=== PATIENT | male | born 1970 | race Hispanic/Latino ===

== ENCOUNTER 2023-01-28 13:28 | Observation (INO) | payer MEDICARE, OTHER ==
[2023-01-28] VITALS (10 sets, daily range): BP systolic 105–164; BP diastolic 37–100; PULSE 73–79; RESP 10–18; O2SAT 99
[~2023-01-28] VITALS: Ht 180.3 cm; Wt 92.1 kg
[2023-01-28] MEDS ORDERED: IODIXANOL 320 MG/ML 100 ML VIAL ONE (17:49)
[2023-01-28] MEDS ORDERED: NITROGLYCERIN 50MG VIAL ONE (17:49)
[2023-01-28] MEDS ORDERED: FENTANYL CITRATE PF 50 MCG/1 ML 2ML VIAL ONE ×2 (17:49→19:34)
[2023-01-28] MEDS ORDERED: HEPARIN 10,000 UNIT/10ML (1,000 UNIT/ML) VIAL ONE (17:49)
[2023-01-28] MEDS ORDERED: NICARDIPINE 25MG INJ IV ONE (17:49)
[2023-01-28] MEDS ORDERED: LIDOCAINE HCL 400MG/20ML VIAL ONE (17:49)
[2023-01-28] MEDS ORDERED: MIDAZOLAM HCL 1 MG/ML 2ML VIAL ONE ×2 (17:49→19:01)
[2023-01-28] MEDS ORDERED: HYDRALAZINE 20MG/ML VIAL ONE ×2 (18:21→18:28)
[2023-01-28] MEDS ORDERED: CLOPIDOGREL 300MG TAB ONE (18:33)
[2023-01-28] MEDS ORDERED: LABETALOL 20MG SYG IV ONE (18:42)
[2023-01-28] MEDS ORDERED: DEXTROSE 50%-WATER 50 ML DISP.SYRIN IV PRN (20:00)
[2023-01-28] MEDS ORDERED: GLUCAGON 1MG KIT 1 MG ML IM PRN (20:00)
[2023-01-29 03:49] VITALS: BP 136/71; PULSE 76; RESP 18
== END 2023-01-29 07:26 | disposition short-term general hospital (02) ==
LOC: DAHIP 16:09 → 2DH 20:31
PROVIDERS: ADMIT Student in an Organized Health Care Education/Training Program; ATTEND Student in an Organized Health Care Education/Training Program
DX: I73.9 Peripheral vascular disease, unspecified (principal); E11.51 Type 2 diabetes mellitus with diabetic peripheral angiopathy without gangrene; E11.621 Type 2 diabetes mellitus with foot ulcer; L97.529 Non-pressure chronic ulcer of other part of left foot with unspecified severity; I12.0 Hypertensive chronic kidney disease with stage 5 chronic kidney disease or end stage renal disease; E11.22 Type 2 diabetes mellitus with diabetic chronic kidney disease; N18.6 End stage renal disease; E78.5 Hyperlipidemia, unspecified; Z99.2 Dependence on renal dialysis; Z79.899 Other long term (current) drug therapy
CPT/HCPCS: 75716; 85347; 82948 ×3; C1887; C1894 ×2; C1769 ×4; C1760; C1725 ×2; C1727 ×2; C9772; G0378 ×13; G0379; J3010 ×2; J3490 ×3; J0360 ×2; J1644 ×3; J2250 ×2; Q9967; A4215; A4223 ×3; A4222; A4221; A4663; A4216; A4606; 36415; 99156; 99157